=== PATIENT | male | born 1960 | race Caucasian/White ===

== ENCOUNTER → 2021-10-11 00:23 | Outpatient (CLI) | payer BC, SELFPAY ==
[2021-10-11 19:18] LABS: SARS-CoV-2 RNA PCR Negative
== END ==
PROVIDERS: PCP Physician Assistant Medical; Visit Provider Internal Medicine Gastroenterology
DX: Z01.812 Encounter for preprocedural laboratory examination (principal); Z20.822 Contact with and (suspected) exposure to COVID-19
CPT/HCPCS: C9803; U0003; U0005

== ENCOUNTER 2021-10-15 01:11 | Day surgery (SDC) | payer BC, SELFPAY ==
[2021-10-01 14:22] VITALS: BMI 29.0
[2021-10-15 08:15] VITALS: BP 125/84; PULSE 86; RESP 18; TEMP 36.6; O2SAT 97; BMI 27.5
[2021-10-15] MEDS: LACTATED RINGERS 1,000 ML 150 ML IV CONT (08:23)
--- NOTE | 2021-10-15 08:50 | WPDGICN ---
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 Plan is for surveillance EGD at this time. Further recommendations will be given after endoscopy. (2) History of colon polyps: Code(s): Z86.010 - Personal history of colonic polyps Status: Acute Assessment and Plan: Patient has a prior history of colon polyps. Currently reports that his weight appetite bowel movements are normal. Surveillance colonoscopy is advised at this time. GI Consult Note Consult date/time: 10/15/21 08:50 HPI: Danis Chavez is a 61 year old male Presents for screening colonoscopy and EGD. Patient has a prior history of colon polyps. He reports his current weight appetite bowel movements are normal. He denies abdominal pain. He has had no bleeding. Previous colonoscopy performed in [place] in 2011. Additionally patient has a prior history of acid reflux. He was told he had Olivas's esophagus and presents today for follow-up EGD. He states his heartburn was worse in previous years. Currently only has intermittent heartburn for which she takes Tums 2 times a week. Family history is noncontributory. There is no history of Olivas's nor polyps within the family. Review of Systems Review of Systems: All systems reviewed & are unremarkable except as noted in HPI and below PMFSH Social History Social History Smoking packs per day: 2 Smoking cigarettes per day: 40.0 Smoking status: Former smoker Tobacco type: cigarettes Alcohol intake: current Alcohol use details: 1 PER MONTH Substance use: never Substance use type: does not use Living arrangements: alone Spiritual care concerns: No Meds Home Medications and Allergies Home Medications Medication Instructions Recorded Confirmed Type duloxetine 60 mg PO DAILY 10/01/21 10/01/21 History tadalafil 20 mg PO PRN PRN 10/01/21 10/01/21 History Allergies Allergy/AdvReac Type Severity Reaction Status Date / Time No Known Allergies Allergy Unknown Verified 10/01/21 14:16 Vital Signs Vital Signs - 24 hr 10/15/21 08:15 Temperature 97.9 F Pulse Rate 86 Respiratory Rate 18 Blood Pressure 125/84 Pulse Oximetry 97 Exam Narrative: Physical exam reveals patient to be alert. Vital signs stable. HEENT exam is unremarkable. Patient is anicteric. Lungs are clear to auscultation and percussion. Heart is without murmur or extra sounds. Abdominal exam bowel sounds are present soft nontender with no hepatosplenomegaly. Digital external rectal exam is normal.
--- NOTE | 2021-10-15 09:20 | WPDANESEPPF ---
Anes - Initial Pre Proc Eval Procedure: Operation Date: 10/15/21 09:30 Proposed Procedures p Esophagogastroduodenoscopy & Colonoscopy - Rickey Del Cid MD Date/Time: 10/15/21 09:20 Surgeon: Rickey Del Cid MD Pre Op Diagnosis: hx of colon polyps, joyce's esophagus Patient Data Age: 61 Gender: M Height: 1.83 m Weight: 92.1 kg Last Vital Signs Temp 36.6 C 10/15/21 08:15 Pulse 86 10/15/21 08:15 Resp 18 10/15/21 08:15 BP 125/84 10/15/21 08:15 Pulse Ox 97 10/15/21 08:15 Allergies Allergy/AdvReac Type Severity Reaction Status Date / Time No Known Allergies Allergy Unknown Verified 10/01/21 14:16 Home Medications Medication Instructions Recorded Confirmed Type duloxetine 60 mg PO DAILY 10/01/21 10/01/21 History tadalafil 20 mg PO PRN PRN 10/01/21 10/01/21 History Patient hx anesthesia problems: none Family hx anesthesia problems: none Results Review: All pre-operative results and documents have been reviewed as part of the pre-operative evaluation. [facility] Past Medical History Medical History (Updated 10/15/21 @ 09:21 by Gonzales Tnag MD) Anxiety Overweight Surgical History Surgical History (Updated 10/15/21 @ 09:21 by Gonzales Tang MD) H/O colonoscopy History of esophagogastroduodenoscopy (EGD) Social History Social History (Updated 10/15/21 @ 09:21 by Gonzales Tang MD) Smoking packs per day: 2 Smoking cigarettes per day: 40.0 Smoking status: Former smoker Tobacco type: cigarettes Alcohol intake: current Alcohol use details: 1 PER MONTH Substance use: never Substance use type: does not use Living arrangements: alone Spiritual care concerns: No Anes - Eval Final PreProcedure Day of Procedure 10/15/21 09:20 Patient weight: overweight Heart: regular rate and rhythm Lungs: clear to auscultation Airway: Mallampati scale class II Neurological: alert and oriented Last oral intake: >/= 8 hours ASA classification: II Emergent: no Anesthetic plan: proceed Anesthesia type and monitoring: general GIVS and standard monitoring Results Review: All pre-operative results and documents have been reviewed as part of the pre-operative evaluation. Informed Consent: The patient's anesthetic plan and its attendant risks and benefits were discussed with the patient/family/POA. Questions were solicited and answers provided to the satisfaction of the patient/family/POA.
[2021-10-15] MEDS: BENZOCAINE (*SP) 60 ML SPRAY CAN (HURRICAINE) 1 SPRAY MUCOUS MEM (09:35)
--- NOTE | 2021-10-15 09:49 | SUR.OPER ---
EGD end 943 COLONOSCOPY start 948
[2021-10-15 10:02] VITALS: BP 99/69; PULSE 69; RESP 20; O2SAT 98
[2021-10-15 10:12] VITALS: BP 105/66; PULSE 61; RESP 17; O2SAT 98
[2021-10-15 10:22] VITALS: BP 114/83; PULSE 60; RESP 20; O2SAT 97
--- NOTE | 2021-10-15 10:57 | SUR.PHASEII ---
Patient and family member were given instructions the patient should not drive, operate machinery, make important decisions, or work for 12 hours. Patient and family member were given paper instructions including these instructions as well.
== END 2021-10-15 10:58 | disposition home or self-care (01) ==
PROVIDERS: PCP Internal Medicine; Visit Provider Internal Medicine Gastroenterology
PROC: 0DJ08ZZ Inspection of Upper Intestinal Tract, Via Natural or Artificial Opening Endoscopic (ICD-10-PCS; CPT 43235; principal; 2021-10-15 09:30)
DX: K22.70 Barrett's esophagus without dysplasia (principal); Z12.11 Encounter for screening for malignant neoplasm of colon; K64.8 Other hemorrhoids; K57.30 Diverticulosis of large intestine without perforation or abscess without bleeding; Z86.010 Personal history of colon polyps; Z87.891 Personal history of nicotine dependence; F41.9 Anxiety disorder, unspecified
CPT/HCPCS: 43239; 45378; 88305; J2704; J7120

== ENCOUNTER 2022-09-17 15:21 | Outpatient (CLI) | payer BC, SELFPAY ==
[2022-09-17 16:32] LABS: SARS-CoV-2 RNA PCR Positive
== END 2022-09-17 15:22 | disposition home or self-care (01) ==
PROVIDERS: PCP Internal Medicine; Visit Provider Physician Assistant Medical
DX: U07.1 COVID-19 (principal)
CPT/HCPCS: U0003; U0005

== ENCOUNTER 2024-10-03 00:29 | Day surgery (SDC) | payer BC, SELFPAY ==
[2024-09-20 15:05] VITALS: BMI 27.8
--- NOTE | 2024-10-03 08:43 | P.PNAN_ITS ---
Anes - Initial Pre Proc Eval Procedure: Operation Date: 10/03/24 13:00 Proposed Procedures p Esophagogastroduodenoscopy - Rachid Wilkes MD Date/Time: 10/03/24 08:43 Surgeon: Rachid Wilkes MD Pre Op Diagnosis: Olivas's esophagus w/o dysplasia Patient Data Age: 63 Gender: M Height: 1.83 m Weight: 93 kg Allergies Allergy/AdvReac Type Severity Reaction Status Date / Time No Known Allergies Allergy Unknown Verified 09/20/24 15:04 Home Medications ?Medication ?Instructions ?Recorded ?Confirmed ?Type tadalafil 20 mg tablet 20 mg PO PRN PRN Erectile 02/24/24 09/20/24 Rx Dysfunction #30 tabs alprazolam 0.25 mg tablet 0.25 mg PO DAILY #30 tabs 02/25/24 09/20/24 Rx duloxetine 60 mg capsule,delayed 60 mg PO DAILY #90 caps 09/26/24 Rx release Results Review: All pre-operative results and documents have been reviewed as part of the pre- operative evaluation. [facility] Past Medical History Medical History Umbilical hernia Saw surgeon-watchful waiting Goiter (~08/24/24) 08/24/2024 noted on exam Skin tag Dyslipidemia Anxiety Overweight Surgical History Surgical History History of esophagogastroduodenoscopy (EGD) H/O colonoscopy Family History Family History Father No problems noted. Mother No problems noted. Social History Social History Smoking packs per day: 2 Smoking cigarettes per day: 40.0 Smoking status: Former smoker Tobacco type: cigarettes Alcohol intake: current Alcohol use details: 1 PER MONTH Substance use: never Substance use type: does not use Living arrangements: alone Spiritual care concerns: No Anes - Eval Final PreProcedure Day of Procedure 10/03/24 08:43 Results Review: All pre-operative results and documents have been reviewed as part of the pre- operative evaluation. Informed Consent: The patient's anesthetic plan and its attendant risks and benefits were discussed with the patient/family/POA. Questions were solicited and answers provided to the satisfaction of the patient/family/POA.
[2024-10-03 10:42] VITALS: BP 103/74; PULSE 78; RESP 18; TEMP 35.6; O2SAT 96
[2024-10-03] MEDS: LACTATED RINGERS 1,000 ML 150 ML IV CONT (10:49)
--- NOTE | 2024-10-03 11:13 | PM.IMHP ---
H&P: HPI History of Present Illness Date/Time: 10/03/24 11:13 Chief Complaint: History of Olivas's esophagus Narrative: the patient has a history of Olivas's esophagus, his last EGD was about 3 years ago. He states heartburn is controlled with dietary measures, and occasional TUMS. He does not take any PPIs. He denies dysphagia, nausea or vomiting. Review of Systems Review of Systems: All systems reviewed & are unremarkable except as noted in HPI and below PMFSH Past Medical History Medical History Umbilical hernia Saw surgeon-watchful waiting Goiter (~08/24/24) 08/24/2024 noted on exam Skin tag Dyslipidemia Anxiety Overweight Surgical History Surgical History History of esophagogastroduodenoscopy (EGD) H/O colonoscopy Family History Family History Father No problems noted. Mother No problems noted. Social History Social History Smoking packs per day: 2 Smoking cigarettes per day: 40.0 Smoking status: Former smoker Tobacco type: cigarettes Alcohol intake: current Alcohol use details: 1 PER MONTH Substance use: never Substance use type: does not use Living arrangements: alone Spiritual care concerns: No Meds Home Medications and Allergies Home Medications ?Medication ?Instructions ?Recorded ?Confirmed ?Type tadalafil 20 mg tablet 20 mg PO PRN PRN Erectile 02/24/24 09/20/24 Rx Dysfunction #30 tabs alprazolam 0.25 mg tablet 0.25 mg PO DAILY #30 tabs 02/25/24 10/03/24 Rx duloxetine 60 mg capsule,delayed 60 mg PO DAILY #90 caps 09/26/24 10/03/24 Rx release Allergies Allergy/AdvReac Type Severity Reaction Status Date / Time No Known Allergies Allergy Unknown Verified 10/03/24 10:41 Vital Signs Vital Signs - 24 hr 10/03/24 10:42 Temperature 96.1 F L Pulse Rate 78 Respiratory Rate 18 Blood Pressure 103/74 Pulse Oximetry 96 Oxygen Delivery Room Air Exam Const: General: cooperative and healthy appearing Resp: Effort & Inspection: normal respiratory effort and able to speak in complete sentences Auscultation: clear to auscultation bilaterally Cardio: Rate: regular rate Rhythm: regular rhythm GI: Inspection: normal to inspection GI Palp: No No hepatosplenomegaly present Auscultation: normal bowel sounds Rectal Exam: deferred Skin: General skin exam: normal color Psych: Appearance: grossly normal Mental Status: mental status grossly normal Assessment and Plan Assessment and plan (1) Olivas's esophagus: Code(s): K22.70 - Olivas's esophagus without dysplasia Status: Acute Plan History of Olivas's esophagus The patient is deemed a good candidate for the procedure. Consent signed. Will proceed.
[2024-10-03 11:40] VITALS: BP 92/62; PULSE 67; RESP 18; O2SAT 95
[2024-10-03 11:50] VITALS: BP 91/53; PULSE 65; RESP 17; O2SAT 94
[2024-10-03 12:00] VITALS: BP 95/70; PULSE 71; RESP 17; O2SAT 96
--- OUTSIDE RECORDS SUMMARY | 2024-10-08 09:17 | XMS_ITS | Encounter Summary ---
Author Organization [facility] Address [facility] [place] [address] [place] [address] Care Team Providers Care Grader Meat Name Role Phone Unavailable Primary Care Provider Unavailabl e Encounter Details Date Type Department Care Team (Late st Contact Info) Description 08/16/2008 Abstract [facility] CONVERSION [address] [place], [place] [id number] Hayder Toribio MD [facility] [place], [place] [id number] Social History Tobacco Use Types Packs/Day Years Used Date Smoking Tobacco: Never Assessed Sex and Gender Information Value Date Recorded Sex Assigned at Not on file Legal Sex Male 5:50 PM CDT Gender Identity Not on file Sexual Orientation Not on file documented as of this encounter Plan of Treatment Not on file documented as of this encounter Visit Diagnoses Not on filedocumented in this encounter
--- OUTSIDE RECORDS SUMMARY | 2024-10-08 09:17 | XMS_ITS | Clinical Summary ---
Author Organization [facility] Address [address] [place] [address]. [place], [place] [id number] [place] [address] Care Team Providers Care Machine Egg Washer Name Role Phone Unavailable Primary Care Provider Unavailabl e Social History Tobacco Use Types Packs/Day Years Used Date Smoking Tobacco: Never Assessed Sex and Gender Information Value Date Recorded Sex Assigned at Not on file Legal Sex Male 5:50 PM CDT Gender Identity Not on file Sexual Orientation Not on file Plan of Treatment Health Maintenance Due Date Last Done Comments Colorectal Cancer Screening Colonoscopy (10 Years) 1960 Annual Physical 1963 Hepatitis C 1978 DTaP, Tdap and Td Vaccines ( 1 - Tdap) 1979 Zoster Vaccines (1 of 2) 2010 COVID-19 Vaccine (2023-2 5 season) 2024 Influenza Adult (#1) 2024 RSV Immunization or 60+ Years (1 - 1-dose 75+ series) 2035 Meningococcal Vaccine Aged Out No harrison britta eligible based on patient's age to complete this topic Pneumococcal Vaccine: Pediat rics (0 to 5 Years) and At-Risk Patients (6 to 64 Years) Aged Out No longer eligible b ased on patient's age to complete this topic RSV Immunizations Under 20 Months Aged Out No longer eligible based on patient's age to complete this topic
--- OUTSIDE RECORDS SUMMARY | 2024-10-08 09:17 | XMS_ITS | Encounter Summary ---
Author Organization [facility] Address [facility] [address] [place] [address] Care Team Providers Care Brick Offbearer Name Role Phone Unavailable Primary Care Provider Unavailabl e Encounter Details Date Type Department Care Team (Late st Contact Info) Description 12/16/2012 Abstract [facility] [address] [place] [address] Luis Calvin, ENZYME CHEMIST [address], [place], [place] [address] Social History Tobacco Use Types Packs/Day Years Used Date Smoking Tobacco: Never Assessed Sex and Gender Information Value Date Recorded Sex Assigned at Not on file Legal Sex Male 5:50 PM CDT Gender Identity Not on file Sexual Orientation Not on file documented as of this encounter Plan of Treatment Not on file documented as of this encounter Visit Diagnoses Diagnosis Sensorineural hearing loss Sensorineural hearing loss, unspecified documented in this encounter
--- OUTSIDE RECORDS SUMMARY | 2024-10-08 09:17 | XMS_ITS | Encounter Summary ---
Author Organization [facility] Address [facility] [place] [address] [place] [address] Care Team Providers Care Production Supv Name Role Phone Unavailable Primary Care Provider Unavailabl e Encounter Details Date Type Department Care Team (Late st Contact Info) Description 10/27/2007 Abstract [facility] CONVERSION [address] [place] [id number] Dionisio Bill MD [address] [place] [address] Social History Tobacco Use Types Packs/Day Years [...]
--- OUTSIDE RECORDS SUMMARY | 2024-10-08 09:17 | XMS_ITS | Encounter Summary ---
Author Organization [facility] Address [facility] [place] [address] [place] [address] Care Team Providers Care Import Export Manager Name Role Phone Unavailable Primary Care Provider Unavailabl e Encounter Details Date Type Department Care Team (Late st Contact Info) Description 10/09/2007 Abstract [facility] CONVERSION [address] [place] [address] Luis Beard, PECAN MALLOW DIPPER [address] [place], [place] [id number] Social History Tobacco Use Types Packs/Day Years [...]
--- OUTSIDE RECORDS SUMMARY | 2024-10-08 09:17 | XMS_ITS | Continuity of Care Document ---
Author Organization [facility] Address [address] [place] [address] Phone Care Team Providers Care Tar Pot Worker Name Role Phone Espinoza OD, Rickey Unavailable Unavailable Advance Directives Directive Yes / No Effective Date File Name No Information Encounters Encounter Description Practice Location Reason(s) For Visit Diagnoses Date Provider Providers Copied on Encounter [facility], [address], [place], [place], [id number], [place] tel:[phone] [facility] [place] No Information Jun- 1-200 1 Espinoza OD Rickey. [address] , [address], [place], [address], [place]. tel:[phone] Family History Family Member Type Diagnosis Age At Onset No Information Payers Payer name Insurance type Covered libertarian ID Authoriza tion(s) No Information Social History Type Description Quantity Date Captured Comments Sex Male Smoking Status No Information Chief Complaint And Reason For Visit No Information Reason For Referral Reason For Referral No Information History Of Present Illness Encounter Date Complaint History Of Prese nt Illness No Information Functional Status Date Functional Assessmen t No Information Instructions Date Instruction Additional Infor mation No Information Assessments Type Assessment Date No Information Patient Care Teams Name Effective Dates (start - stop) Status Members No Information
--- OUTSIDE RECORDS SUMMARY | 2024-10-08 09:17 | XMS_ITS | Encounter Summary ---
Author Organization [facility] Address [facility] [place] [address] [place] [address] Care Team Providers Care Wire Mesh Filter Fabricator Name Role Phone Unavailable Primary Care Provider Unavailabl e Encounter Details Date Type Department Care Team (Late st Contact Info) Description 04/09/2012 Abstract [facility] [address] [place] [address] Sebastien Reese MD [address] [place] [address] Social History Tobacco Use Types Packs/Day Years Used Date Smoking Tobacco: Never Assessed Sex and Gender Information Value Date Recorded Sex Assigned at Not on file Legal Sex Male 5:50 PM CDT Gender Identity Not on file Sexual Orientation Not on file documented as of this encounter Plan of Treatment Not on file documented as of this encounter Visit Diagnoses Diagnosis Special screening for malignant neoplasms, colon documented in this encounter
--- OUTSIDE RECORDS SUMMARY | 2024-10-08 09:17 | XMS_ITS | Encounter Summary ---
Author Organization [facility] Address [facility] [place] [address] [place] [address] Care Team Providers Care Fruit Pitter Name Role Phone Unavailable Primary Care Provider Unavailabl e Encounter Details Date Type Department Care Team (Late st Contact Info) Description 10/10/2009 Abstract [facility] [address] [place] [address] Sebastien Reese MD [address] [place] [address] Social History Tobacco Use Types Packs/Day [...]
--- OUTSIDE RECORDS SUMMARY | 2024-10-08 09:17 | XMS_ITS | Encounter Summary ---
Author Organization [facility] Address [address] [place] [address]. [place] [address] [place] [address] Care Team Providers Care Military Cook Name Role Phone Unavailable Primary Care Provider Unavailabl e Encounter Details Date Type Department Care Team (Late st Contact Info) Description 07/05/2009 Abstract [facility] [address] [place] [address] Sebastien Reese MD [address] [place] [address] Social History Tobacco Use Types Packs/Day [...]
--- OUTSIDE RECORDS SUMMARY | 2024-10-08 09:17 | XMS_ITS | Encounter Summary ---
Author Organization [facility] Address [facility]. [place], [place] [address] [place], [place] [id number] Care Team Providers Care Riding Double Name Role Phone Unavailable Primary Care Provider Unavailabl e Encounter Details Date Type Department Care Team (Late st Contact Info) Description 10/30/[address] [facility] CONVERSION [address] [place] [id number] , Generic Conversion, Social History Tobacco Use Types Packs/Day Years [...]
== END 2024-10-03 12:28 | disposition home or self-care (01) ==
PROVIDERS: PCP Physician Assistant Medical; Visit Provider Internal Medicine Gastroenterology
PROC: 0DJ08ZZ Inspection of Upper Intestinal Tract, Via Natural or Artificial Opening Endoscopic (ICD-10-PCS; CPT 43235; principal; 2024-10-03 13:00)
DX: K22.70 Barrett's esophagus without dysplasia (principal); K44.9 Diaphragmatic hernia without obstruction or gangrene; K29.30 Chronic superficial gastritis without bleeding; Z87.891 Personal history of nicotine dependence; F41.9 Anxiety disorder, unspecified
CPT/HCPCS: 43239; 88305; J2003; J2704; J7120

== ENCOUNTER 2024-11-15 14:02 | Outpatient (CLI) | payer BC, SELFPAY ==
--- NOTE | ~2024-11-15 | XR_ITS ---
EXAMINATION: XR UGIAC w barium swallow DATE: 11/15/2024 14:46 INDICATION: Diaphragmatic hernia without obstruction or gangrene TECHNIQUE: The patient drank thick barium, gas-producing crystals, and thin barium. A total of 1494 f luoroscopic images of the hypopharynx, esophagus, stomach, and proximal small bowel were obtained. Fl uoroscopy exposure time was 2.2 minutes. Total DAP was 78.955 Gycm^2 COMPARISON: None. FINDINGS: The pharynx is symmetric and without evidence of mass lesion or mucosal irregularity. The e sophagus is normal without mass or stricture. There is mild esophageal dysmotility with weakening of the primary peristaltic wave and break up of the contrast bolus in the mid to distal esophagus. There is a large sliding-type hiatal hernia essentially entire stomach positioned above level of the diaph ragm. There is organoaxial volvulus of the intrathoracic stomach with the greater curvature position along the cephalad margin of the honey hernia. There are couple episodes of mild gastroesophageal refl ux into the distalmost esophagus with provocative maneuvers. The stomach and proximal small bowel are normal. IMPRESSION: 1. Large sliding-type hiatal hernia containing essentially the entire stomach with organoaxial volvul us. 2. A couple episodes of gastroesophageal reflux of a small amount of contrast into the distal most es ophagus. 3. Mild esophageal dysmotility with weakening of the primary peristaltic wave breakup of the contrast bolus in the mid to distal esophagus. Reviewed, dictated and finalized at location [facility] IMPRESSION: 1. Large sliding-type hiatal hernia containing essentially the entire stomach w ith organoaxial volvulus. 2. A couple episodes of gastroesophageal reflux of a small amount of contrast i nto the distal most esophagus. 3. Mild esophageal dysmotility with weakening of the primary peristaltic wave b reakup of the contrast bolus in the mid to distal esophagus.
--- OUTSIDE RECORDS SUMMARY | 2024-11-15 14:43 | XMS_ITS | Continuity of Care Document ---
Author Organization [facility] Address [address] [place] [address] Phone Care Team Providers Care Project Management Intern Name Role Phone Espinoza OD, Rickey Unavailable Unavailable Advance Directives Directive Yes / No Effective Date File Name No Information Encounters Encounter Description Practice Location Reason(s) For Visit Diagnoses Date Provider Providers Copied on Encounter [facility], [address], [place], [place], [id number], [place] tel:[phone] [facility] No Information Jun- 1-200 1 Espinoza OD Rickey. [address] , [address], [place], [address], [place]. tel:[phone] Family History Family Member Type Diagnosis Age [...]
--- OUTSIDE RECORDS SUMMARY | 2024-11-15 14:43 | XMS_ITS | Clinical Summary ---
Author Organization [facility] Address [address] [place] [address]. [place], [place] [id number] [place] [address] Care Team Providers Care Boring Machine Operator Horizontal Name Role Phone Unavailable Primary Care Provider [...] (1 - 1-dose 75+ series) 2035 Meningococcal B Vaccine Aged Out No l onger eligible based on patient's age to complete this topic Meningococcal Vaccine Aged Out No harrison britta [...]
== END 2024-11-15 14:03 | disposition home or self-care (01) ==
PROVIDERS: PCP Physician Assistant Medical; Visit Provider Internal Medicine Gastroenterology
DX: K44.9 Diaphragmatic hernia without obstruction or gangrene (principal); K56.2 Volvulus; K22.4 Dyskinesia of esophagus
CPT/HCPCS: 74246